=== PATIENT | female | born 1990 | race Hispanic/Latino ===

== ENCOUNTER 2022-12-15 08:34 | Emergency (ER) | payer BC ==
[~2022-12-15] VITALS: Ht 157.5 cm; Wt 99.8 kg
[2022-12-15 09:05] LABS: APPEARANCE,URINE CLEAR (CLEAR); BILIRUBIN,URINE NEGATIVE (NEGATIVE); COLOR,URINE LIGHT-YELLOW (YELLOW); GLUCOSE, URINE (UA) NEGATIVE (NEGATIVE); KETONES,URINE NEGATIVE (NEGATIVE); LEUKOCYTE ESTERASE ,URINE NEGATIVE Leu/uL (NEGATIVE); NITRATE,URINE NEGATIVE (NEGATIVE); OCCULT BLOOD,URINE MODERATE (NEGATIVE); PROTEIN,URINE 10 mg/dL (NEGATIVE); UROBILINOGEN,URINE 0.2 mg/dL (0.2-1.0)
[2022-12-15 09:06] LABS: BASOPHILS % (AUTO) 0.2 % (0.0-5.0); EOSINOPHILS % (AUTO) 0.2 % (0.0-8.0); HEMATOCRIT 42.6 % (36-48); LYMPHOCYTES % (AUTO) 7.5 % (21.0-51.0); MEAN CORPUSCULAR HEMOGLOBIN 28.8 pg (27.0-33.0); MEAN CORPUSCULAR HGB CONC 32.6 g/dL (32.0-36.0); MEAN CORPUSCULAR VOLUME 88.4 fL (79-99); NEUTROPHILS % (AUTO) 87.8 % (40.0-77.0); PLATELET COUNT (AUTO) 320 K/uL (130-400); RED BLOOD CELL COUNT(AUTO) 4.82 MIL/uL (4.00-5.50); RED CELL DISTRIBUTION WIDTH 12.2 % (11.0-15.5); WHITE BLOOD COUNT (AUTO) 18.1 K/uL (4.8-10.8)
[2022-12-15 09:10] LABS: BACTERIA,URINE RARE /HPF (None Seen); MUCUS,URINE FEW LPF (None Seen); RBC,URINE 51-100 /HPF (0-1); SQUAMOUS EPITHELIAL CELL,UR RARE /HPF (0-2)
[2022-12-15 09:11] LABS: HCG,QUALITATIVE URINE NEGATIVE (NEGATIVE)
[2022-12-15 09:15] LABS: CREATININE 1.2 mg/dL (0.5-1.5); POTASSIUM 3.8 mmol/L (3.5-5.1)
[2022-12-15 09:19] LABS: ALBUMIN 3.1 g/dL (3.5-5.0)
[2022-12-15] MEDS ORDERED: KETOROLAC 30MG VIAL (30MG/ML) IVP ONE (09:30)
[2022-12-15] MEDS ORDERED: ONDA4TAB10 PO (11:21)
[2022-12-15] MEDS ORDERED: CEPH500B PO (11:21)
[2022-12-15] MEDS ORDERED: TAMS-1 PO (11:21)
[2022-12-15] MEDS ORDERED: IBUP-2070 PO (11:21)
[2022-12-15] MEDS ORDERED: CEFTRIAXONE 1G VIAL IVP ONE (11:30)
[2022-12-15 11:38] VITALS: BP 127/72
== END 2022-12-15 12:02 | disposition home or self-care (01) ==
LOC: EDH 08:34
DX: N20.2 Calculus of kidney with calculus of ureter (principal); D72.829 Elevated white blood cell count, unspecified
CPT/HCPCS: 99284; 74176; 96374; 96375; 80053; 85025; 81001; 81025; 36415; J0696; J1885